=== PATIENT | male | born 1970 | race Caucasian/White ===

== ENCOUNTER → 2019-04-23 | Outpatient (CLI) | payer BC | LOC: RAD 13:39 | DX: M19.071 Primary osteoarthritis, right ankle and foot (principal); M79.89 Other specified soft tissue disorders ==

== ENCOUNTER → 2019-12-11 | Outpatient (CLI) | payer BC | LOC: LAB 10:30 | PROVIDERS: ATTEND Nurse Practitioner | DX: U07.1 COVID-19 (principal); R05 Cough; R50.9 Fever, unspecified; M79.10 Myalgia, unspecified site ==

== ENCOUNTER → 2020-06-30 | Outpatient (CLI) | payer OTHER ==
[~2020-06-30] VITALS: Ht 182.9 cm; Wt 86.2 kg
[~2020-06-30] MED LIST: COZAAR 25 MG TA25 MG PO; MELOXICAM15 MG PO
[2020-06-30 13:42] VITALS: BP 129/80
--- NOTE | 2020-06-30 14:15 | NUR ---
Pain Clinic Assessment: 1. History of Osteoarthritis: Not Applicable History of Rheumatoid Arthritis: Not Applicable 2. Height: 6 ft. 00 in. 182.9 cm. Weight: 190.0 lb. oz. 86.184 kg. Patient's BMI: 25.8 3. Vital Signs: BP: 129/80 Pulse: 73 Resp: 16 Temp: 02 Sat: 97 ECG Mon: 4. Pain Intensity: 8 5. Fall Risk: Dizziness: N Needs help standing or walking: N Fallen in the last 3 months: N Fall risk comments: 6. Patient on Blood Thinner: None 7. History of Hypertension: Y 8. Opioid Therapy greater than 6 weeks: N Opiate Contract Signed: 9. Risk Assessment Tool Provided: 10. Functional Assessment Tool: 11. Recreational Drug Use: Never Drug Type: Tobacco Use: Never Smoker Tobacco Type: Amount or Packs/day: How Many Years: Alcohol Use: Yes Frequency: Daily Quant: 2
--- NOTE | 2020-07-06 08:02 | HPC ---
[facility] [place] [address] PAIN MANAGEMENT CONSULTATION Name: DICKSON MORILLO Room #: REG Gary Lofton#: [id number] Admission: 06/30/20 Attend Phys: Guido Hoover DO Discharge: Date of : 74 Report #: [id number] THIS REPORT FOR: cc: Jose C Mark MD, Neal A. MD Johnson, James E. DO ~ DATE OF SERVICE: 06/30/2020 REFERRING PHYSICIAN: JAVIER Hays CHIEF COMPLAINT: Low back pain, left lower extremity pain with paresthesias. HISTORY OF PRESENT ILLNESS: As you know, the patient is a very pleasant 50-year-old male who reports 3-month history of low back pain, left lower extremity pain with paresthesias. The patient believes his pain began while on the golf course after teeing off on one of the longer part holes. He states he sought chiropractic manipulation, which prior gave good benefit, but was unhelpful. He states that his pain continued. It was exacerbated days later when he was on the golf course with his daughter and by the fourth hole, he had to discontinue the activity as his symptoms progressed with radiation down the left leg. He has been doing home directed physical therapy with minimal assistance for pain. He is even trial tmxt-udu-ejvrvso medications, rest, relaxation. He sought further evaluation through his primary care team seeing nurse practitioner, Cecy McGinness where he was sent for imaging studies. The findings show changes at the L4-L5 level and the patient was subsequently referred to our clinic. The patient reports today his pain is continuous. He describes the pain as shooting, aching, stabbing, numbness and tingling. Places current pain score 9/10, daily average at 9/10, worst pain has been is 9/10. The patient states pain is constant in nature, exacerbated with most activities, improves with nothing to date. He has been referred to our service to discuss treatment options for suspected lumbar radiculopathy. PAST MEDICAL HISTORY: 1. Hypertension. 2. Degenerative joint disease. 3. Osteoarthritis. PAST SURGICAL HISTORY: 1. Knee surgery. 2. Sinus surgery. SOCIAL HISTORY: The patient denies tobacco, IV or illicit drug use. Admits to 2 alcohol beverages per day. He is employed in sales. He is working, not receiving workmen's compensation nor is he trying to obtain discrete benefits. [address] [address] PAIN MANAGEMENT CONSULTATION Name: DICKSON MORILLO [id number] Admission: 06/30/20 Attend Phys: Guido Hoover DO Discharge: Date of : 74 Report #: [id number] He is not in litigation in regards to pain. He is unaccompanied at today's visit. REVIEW OF SYSTEMS: Positive for headaches, nocturia, low back pain, left lower extremity pain and paresthesias. All other review of systems negative per 12-point review of systems other than those listed in history of present illness. Pain impact score 58 of 70 indicating severe interference of daily activities secondary to pain. ALLERGIES: IODINE. CURRENT MEDICATIONS: Losartan 12 mg once a day, meloxicam 15 mg once a day. IMAGING: MRI of the lumbar spine obtained on 06/08/2020 shows L1-L2 unremarkable, L2-L3 unremarkable, L3-L4 unremarkable, L4-L5 shows left foraminal disk protrusion/extrusion with annular fissure causing left neural foraminal stenosis and compression of the left L4 nerve root within the neural foramen. There is a slight disk bulge, no central canal stenosis or right neural foraminal stenosis, mild facet arthropathy L5-S1, mild facet arthropathy. No central canal nor neural foraminal stenosis. PHYSICAL EXAMINATION: VITAL SIGNS: Blood pressure 129/80, pulse 73, respiratory rate 16 and unlabored. The patient is 97% on room air, height 6 feet tall, weight 190 pounds, BMI calculated 25.8. GENERAL: Well-developed, well-nourished, well-hydrated 50-year-old male appearing stated age. He is placing current pain score 8/10. HEENT: Normocephalic, atraumatic. Pupils equal, round and reactive. NEUROLOGIC: Speech is fluent. The patient is wearing a mask in compliance with COVID-19 regulations. RESPIRATORY: No wheezes, cough or rales. The patient is able to complete sentences without difficulty. EXTREMITIES: Show no clubbing, no cyanosis, no edema. MUSCULOSKELETAL: Lower extremity strength is symmetrical 5/5. Slight giveaway strength noted with hip flexion, knee extension on the left when compared to the right secondary to pain. Seated straight leg raising positive on the left. Supine straight leg raising positive on the left. Gait is mildly antalgic favoring left lower extremity over right. Muscle bulk and tone equal and symmetrical in lower extremities. Intact to light touch from L1 through S2 dermatomes. Deep tendon reflexes are symmetrical at patella and Achilles, 2+/4. Lumbar provocation testing is met with mild increase in pain, no radiation of symptoms. ASSESSMENT: [facility] [address] [place] [address] PAIN MANAGEMENT CONSULTATION Name: DICKSON MORILLO Room #: REG CL Rolly#: [id number] Admission: 06/30/20 Attend Phys: Guido Hoover DO Discharge: Date of : 74 Report #: [id number] 1. Symptomatic lumbar radiculopathy. 2. Displacement of lumbar intervertebral disk with radiculopathy. 3. Neural foraminal stenosis of the lumbar spine. 4. Facet arthropathy of the lumbar spine. PLAN: 1. Based on today's physical exam and history the patient has provided, the description the patient uses in regards to pain and the distribution of symptoms, the patient is experiencing pain upon likely source of his pain is lumbar radiculopathy. We have reviewed with the patient the findings of his recent MRI describing the differences between protrusions or extrusions and disk herniations. We then compared those findings and the MRI, specifically those findings at the L4-L5 level with his current symptoms. These both correlate very well, as the patient is experiencing an L4 dermatomal distribution of pain on the left side. We discussed with the patient the treatment options as follows: We discussed physical therapy, stretching exercises, core strengthening. The patient is participating in physician-directed physical therapy and stretching, but has noted only minimal improvement. We discussed possible further adjustments in that treatment. We discussed medication management adding neuropathic pain medications such as amitriptyline, nortriptyline, Cymbalta and Lyrica. We discussed epidural injections under fluoroscopic guidance for which the patient was referred to our clinic. We also discussed spinal cord stimulator therapy and surgical options. After reviewing the risks and benefits of all the proposed treatment options, the patient chose to begin with a lumbar epidural injection under fluoroscopic guidance. 2. The patient was advised that third alliance party payer restrictions require authorization for the patient to undergo the procedure. We were able to authorize this injection today and the patient was agreeable to undergo the procedure. 3. The patient has been advised risks and benefits of a lumbar epidural injection. These risks include but are not necessarily limited to bleeding, bruising, infection, worsening pain, no relief of pain, also risk of temporary or permanent muscle weakness, temporary or permanent nerve damage, possible paralysis and . The patient states understood and wished to proceed. 4. No medication changes made at today's visit. The patient will continue current medical therapy as prior prescribed. 5. We plan to see the patient back in followup visit in approximately 30 days. At that time, review the efficacy of today's epidural injection and determine if the next in the series of epidural injections might be necessary. 6. We wish to thank nurse practitioner, Cecy Mike for the opportunity to see this patient in consultation. We will keep you apprised of his response to treatment as we address lumbar radicular symptoms. Again, we wish to thank you for the opportunity to see this patient in consultation. [address] [address] PAIN MANAGEMENT CONSULTATION Name: DICKSON MORILLO Room #: REG CHRISTIAN Holder#: [id number] Admission: 06/30/20 Attend Phys: Guido Hoover DO Discharge: Date of : 74 Report #: [id number] PROCEDURE NOTE DESCRIPTION OF PROCEDURE: L5-S1 left paramedian epidural steroid injection under fluoroscopic guidance. After obtaining written consent, the patient was taken back to fluoroscopy suite, placed in prone position with pillow under abdomen to decrease lumbar lordosis. Skin overlying lumbosacral area then prepped and draped in aseptic fashion. The L5-S1 vertebral interspace identified by AP fluoroscopy. Skin and subcutaneous tissue overlying target site injection anesthetized with 3 mL of 1% lidocaine. A 20-gauge 3-1/2 inch Tuohy needle advanced under fluoroscopic guidance towards the epidural space using a left paramedian approach. Due to an ALLERGY TO IODINE no contrast agent was used in today's procedure. Needle positioning was confirmed using both AP and lateral fluoroscopy. After negative aspiration for heme or cerebrospinal fluid, 5 mL of solution containing 2 mL 40 mg per mL, 80 mg total triamcinolone along with 3 mL of lidocaine 1% injected slowly. Needle retracted half-way, flushed with 1 mL of 1% lidocaine and then removed. Sterile bandage placed over injection site. No new motor deficits present in lower extremity following procedure. The patient tolerated procedure well, carefully escorted to recovery room in stable condition. No apparent complications. After meeting discharge criteria, the patient discharged home. <ELECTRONICALLY SIGNED> By: Guido Hoover DO 07/06/20 [id number] [id number] Guido Hoover DO /nt
== END | disposition home or self-care (01) ==
LOC: PAIN 06-22 06:48
PROVIDERS: ATTEND Anesthesiology Pain Medicine
DX: M51.16 Intervertebral disc disorders with radiculopathy, lumbar region (principal); M48.061 Spinal stenosis, lumbar region without neurogenic claudication; M47.26 Other spondylosis with radiculopathy, lumbar region; I10 Essential (primary) hypertension; M19.90 Unspecified osteoarthritis, unspecified site; Z98.890 Other specified postprocedural states; Z79.899 Other long term (current) drug therapy; Z91.041 Radiographic dye allergy status

== ENCOUNTER → 2020-11-23 | Outpatient (CLI) | payer OTHER ==
[~2020-11-23] VITALS: Ht 185.4 cm; Wt 84.1 kg
[2020-11-23 08:19] VITALS: BP 127/78
--- NOTE | 2020-11-23 08:22 | NUR ---
Pain Clinic Assessment: 1. History of Osteoarthritis: Not Applicable History of Rheumatoid Arthritis: Not Applicable 2. Height: 6 ft. 1 in. 185.4 cm. Weight: 185.4 lb. oz. 84.097 kg. Patient's BMI: 24.5 3. Vital Signs: BP: 127/78 Pulse: 94 Resp: 16 Temp: 02 Sat: 99 ECG Mon: 4. Pain Intensity: 8 5. Fall Risk: Dizziness: N Needs help standing or walking: N Fallen in the last 3 months: N Fall risk comments: 6. Patient on Blood Thinner: None 7. History of Hypertension: Y 8. Opioid Therapy greater than 6 weeks: N Opiate Contract Signed: 9. Risk Assessment Tool Provided: 7 MODERATE RISK 10. Functional Assessment Tool: 58/70 11. Recreational Drug Use: Never Drug Type: Tobacco Use: Never Smoker Tobacco Type: Amount or Packs/day: How Many Years: Alcohol Use: Yes Frequency: Daily Quant: 2
--- NOTE | 2020-11-30 09:33 | HPC ---
[facility] [place] [address] PAIN MANAGEMENT CONSULTATION Name: DICKSON MORILLO Room #: REG CHRISTIAN Adia.#: [id number] Admission: 11/23/20 Attend Phys: Guido Hoover DO Discharge: Date of : 74 Report #: [id number] THIS REPORT FOR: cc: Jose C Mark MD,Guido Doran MD, DO ~ DOC #: [id number] cc: MD Guido Medrano DO DATE OF SERVICE: 11/23/2020 REFERRING PHYSICIAN: Jose C Mark MD CHIEF COMPLAINT: Low back pain, left lower extremity pain with paresthesias. HISTORY OF PRESENT ILLNESS: As you know, the patient is a very pleasant 50-year-old male returning in followup visit with recurrence of lumbar radicular symptoms involving left lower extremity. The patient reports with previous epidural injection, he received near 100% improvement in overall pain lasting for five and a half months. The patient states that he was doing very well until just recently when he was taking his dog for a walk. Apparently, the dog's weight is up to 100 pounds. Dog was pulling on the leash unexpectedly and this caused instantaneous recurrence of his low back and left lower extremity symptoms. Other than this incident, he had had no new injury or trauma. He returns today in followup visit having tried conservative ocen-znl-kxxfzja medication, rest, and relaxation to address the recurrent lumbar radiculopathy in hopes of undergoing an epidural injection under fluoroscopic guidance. The patient was made today's appointment to undergo the next in the series of epidural injections. He is placing his current pain score at 8/10. ALLERGIES: IODINE. CURRENT MEDICATIONS: Meloxicam 15 mg once a day, losartan 25 mg once a day. SOCIAL HISTORY: The patient denies tobacco use. Denies IV or illicit drug use. Admits to approximately 2 alcohol beverages per day. He is employed in sales, working, unaccompanied today. IMAGING: No new imaging available. PHYSICAL EXAMINATION: VITAL SIGNS: Blood pressure 127/78, pulse 94, respiratory rate 16 and unlabored. The patient is 99% on room air, height 6 feet 1 inch tall, weight 185.4 pounds, BMI calculated 24.5. GENERAL: Well-developed, well-nourished, well-hydrated, 50-year-old male, appearing stated age, pain is rated today at 8/10. [place] [address] PAIN MANAGEMENT CONSULTATION Name: DICKSON MORILLO Room #: REG [facility]#: [id number] Admission: 11/23/20 Attend Phys: Guido Hoover DO Discharge: Date of : 74 Report #: [id number] HEENT: Normocephalic, atraumatic. Pupils equal, round and responsive. He is wearing a mask in compliance with COVID-19 regulations. EXTREMITIES: Show no clubbing, no cyanosis. No appreciable edema. MUSCULOSKELETAL: Seated straight leg raising is positive on the left. Supine straight leg raising is positive on the left. Dulce Maria's test is negative. Gait is mildly antalgic favoring left lower extremity over right. Muscle bulk and tone remain symmetrical in the lower extremities. ASSESSMENT: 1. Symptomatic lumbar radiculopathy. 2. Displacement of lumbar intervertebral disk with radiculopathy. 3. Neural foraminal stenosis of lumbar spine. 4. Facet arthropathy, lumbar spine. 5. Lumbosacral spondylosis with radiculopathy. PLAN: 1. The patient returns today in followup visit having noted 100% improvement in overall pain with the epidural injection provided at the last visit. He is very pleased with response to this injection, returning today to undergo the next in the series. He has been advised risks and benefits of the procedure, states understood and wished to proceed. 2. No medication changes made at today's visit. The patient will continue current medical therapy as prior prescribed. 3. We will see the patient back in followup visit on an as needed basis for the next in the series of epidural injections. We are hopeful the patient will once again see good and prolonged benefit with today's epidural injection. PROCEDURE NOTE DESCRIPTION OF PROCEDURE: L5-S1 left paramedian epidural steroid injection under fluoroscopic guidance. After obtaining written consent, the patient was taken back to fluoroscopy suite, placed in prone position with pillow under abdomen to decrease lumbar lordosis. Skin overlying lumbosacral area prepped and draped in aseptic fashion. L5-S1 vertebral interspace was identified by AP fluoroscopy. Skin and subcutaneous tissue overlying target site injection anesthetized with 3 mL 1% lidocaine. A 20 gauge 3-1/2 inch Tuohy needle advanced under fluoroscopic guidance towards the epidural space using a left paramedian approach. Due to a contrast allergy, no contrast material was used in today's procedure. Needle positioning was confirmed using both AP and lateral fluoroscopy. After negative aspiration for heme or cerebrospinal fluid, 5 mL of solution containing 2 mL 40 mg per mL, 80 mg total triamcinolone along with 3 mL of lidocaine 1% injected slowly. Needle retracted skilled nursing flushed with 1 mL of 1% lidocaine and then removed. Sterile [address] [address] PAIN MANAGEMENT CONSULTATION Name: DICKSON MORILLO Room #: [facility]#: [id number] Admission: 11/23/20 Attend Phys: Guido Hoover DO Discharge: Date of : 74 Report #: [id number] bandage placed over injection site. No new motor deficits present in lower extremity following procedure. The patient tolerated the procedure well, carefully escorted to recovery room in stable condition. No apparent complications. After meeting discharge criteria, the patient discharged home. Guido Hoover DO JEJ/TRELL <ELECTRONICALLY SIGNED> By: Guido Hoover DO 11/30/20 0933 [id number] Guido Hoover DO /nt
== END | disposition home or self-care (01) ==
LOC: PAIN 08-03 07:03
PROVIDERS: ATTEND Anesthesiology Pain Medicine
DX: M51.16 Intervertebral disc disorders with radiculopathy, lumbar region (principal); M47.27 Other spondylosis with radiculopathy, lumbosacral region; M47.26 Other spondylosis with radiculopathy, lumbar region; M48.061 Spinal stenosis, lumbar region without neurogenic claudication; G89.29 Other chronic pain; Z98.890 Other specified postprocedural states; Z79.899 Other long term (current) drug therapy; Z91.041 Radiographic dye allergy status

== ENCOUNTER → 2021-03-16 | Outpatient (CLI) | payer OTHER ==
[~2021-03-16] VITALS: Ht 185.4 cm; Wt 85.4 kg
--- NOTE | ~2021-03-16 | HPC ---
[facility] [address] [place] [address] PAIN MANAGEMENT CONSULTATION Name: DICKSON MORILLO Room #: REG [facility]#: [id number] Admission: 03/16/21 Attend Phys: Guido Hoover DO Discharge: Date of : 74 Report #: [id number] THIS REPORT FOR: cc: Jose C Mark MD, Neal A. MD Johnson, James E. DO ~ cc: JAVIER Hays DATE OF SERVICE: 03/16/2021 REFERRING PHYSICIAN: Nurse practitioner, Cecy Mike. CHIEF COMPLAINT: Low back pain, left lower extremity pain with paresthesias. HISTORY OF PRESENT ILLNESS: As you know, the patient is a 51-year-old male returning to our clinic per the request of his nurse practitioner, Cecy Mike, to undergo next in the series of lumbar epidural injections under fluoroscopic guidance. He returns today stating excellent benefit with the epidural injection provided in November of this year. He states pain improvement of greater than 100% with slow and progressive return of symptoms without inciting injury or trauma. The patient states pain is exacerbated with golfing, arising in the morning, lifting, standing and certain exercises; improves with medications, heat and cold compresses and topical agents and the previous epidural injection. He returns today for the next in the series of epidural injections in hopes of improving pain. The patient denies injury, trauma or any changes in medication management that would preclude the patient from undergoing an epidural injection today. ALLERGIES: IODINE. CURRENT MEDICATIONS: Meloxicam 15 mg once a day, losartan mg once a day. SOCIAL HISTORY: The patient denies tobacco use. Denies IV or illicit drug use. Admits approximately 1-2 alcohol beverages per day. He is employed in sales, working, not receiving workmen's compensation, unaccompanied today. IMAGING: No new imaging available. PHYSICAL EXAMINATION: VITAL SIGNS: Blood pressure 125/89, pulse 66, respiratory rate 14 and unlabored. The patient 97% on room air, height 6 feet 1 inch tall, weight 188.2 pounds, BMI calculated 24.8. GENERAL: Well-developed, well-nourished, well-hydrated 51-year-old male appearing stated age, pain is rated today around 9/10. HEENT: Normocephalic, atraumatic. Pupils equal, round and responsive to light. Speech is fluent. He is wearing a mask in compliance with COVID-[address] [address] PAIN MANAGEMENT CONSULTATION Name: DICKSON MORILLO Room #: REG [facility]#: [id number] Admission: 03/16/21 Attend Phys: Guido Hoover DO Discharge: Date of : 74 Report #: [id number] EXTREMITIES: Show no clubbing, no cyanosis. No appreciable edema. MUSCULOSKELETAL: Lower extremity strength is symmetrical 5/5. Muscle bulk and tone is symmetrical. Seated straight leg raising is negative. Supine straight leg raising positive on the right. Dulce Maria's test is negative. Gait appears normal. Stance normal. ASSESSMENT: 1. Symptomatic lumbar radiculopathy. 2. Displacement of lumbar intervertebral disk with radiculopathy. 3. Neural foraminal stenosis of lumbar spine. 4. Facet arthropathy of lumbar spine. 5. Lumbosacral spondylosis with radiculopathy. PLAN: 1. The patient returns today in followup visit having near 100% improvement in overall pain with the epidural injection provided in November. Unfortunately, his symptoms have begun to return in a slow and progressive fashion. There has been no inciting injury or trauma. He returns today requesting the next in the series of lumbar epidural injections to build on success of previous intervention. The patient has been advised the risks and benefits of the procedure, states understood and wished to proceed. 2. No medication changes made at today's visit. The patient will continue current medical therapy as prior prescribed. 3. We will see the patient back in followup visit for the next in the series of lumbar epidural injections. Based on the patient's current injection record, he is available to begin injections starting as early as next month, which will be the second 6-month series of injections. PROCEDURE NOTE: DESCRIPTION OF PROCEDURE: L5-S1 left paramedian epidural steroid injection under fluoroscopic guidance. After obtaining written consent, the patient was taken back to fluoroscopy suite, placed in prone position with pillow under abdomen to decrease lumbar lordosis. Skin overlying lumbosacral area prepped and draped in aseptic fashion. The L5-S1 vertebral interspace identified by AP fluoroscopy. Skin and subcutaneous tissue overlying target site injection anesthetized with 3 mL 1% lidocaine. A 20 gauge 3-1/2 inch Tuohy needle advanced under fluoroscopic guidance towards the epidural space using left paramedian approach. Epidural space identified using loss of resistance to air technique. Due to a contrast allergy, no contrast agent was used in today's procedure. The needle positioning was confirmed using both AP and lateral fluoroscopy within the epidural space. After negative aspiration for heme or cerebrospinal fluid, 5 mL solution [address] [address] PAIN MANAGEMENT CONSULTATION Name: DICKSON MORILLO Room #: REG [facility]#: [id number] Admission: 03/16/21 Attend Phys: Guido Hoover DO Discharge: Date of : 74 Report #: [id number] containing 2 mL 40 mg per mL 80 mg total triamcinolone along with 3 mL lidocaine of 1% injected slowly. Needle retracted retirement, flushed with 1 mL of 1% lidocaine, then removed. Sterile bandage placed over injection site. No new motor deficits present in lower extremity following procedure. The patient tolerated the procedure well, carefully escorted to recovery room in stable condition. No apparent complications. After meeting discharge criteria, the patient discharged home. By: [id number] Guido Hoover DO /nt
[2021-03-16 09:44] VITALS: BP 125/89
--- NOTE | 2021-03-16 09:45 | NUR ---
Pain Clinic Assessment: 1. History of Osteoarthritis: Not Applicable History of Rheumatoid Arthritis: Not Applicable 2. Height: 6 ft. 1 in. 185.4 cm. Weight: 188.2 lb. oz. 85.367 kg. Patient's BMI: 24.8 3. Vital Signs: BP: 125/89 Pulse: 66 Resp: 14 Temp: 02 Sat: 97 ECG Mon: 4. Pain Intensity: 9 W/ACTIVITY 5. Fall Risk: Dizziness: N Needs help standing or walking: N Fallen in the last 3 months: N Fall risk comments: 6. Patient on Blood Thinner: None 7. History of Hypertension: Y 8. Opioid Therapy greater than 6 weeks: N Opiate Contract Signed: 9. Risk Assessment Tool Provided: 7 MODERATE RISK 10. Functional Assessment Tool: 58/70 11. Recreational Drug Use: Never Drug Type: Tobacco Use: Never Smoker Tobacco Type: Amount or Packs/day: How Many Years: Alcohol Use: Yes Frequency: Daily Quant: 1-3
== END | disposition home or self-care (01) ==
LOC: PAIN 07:03
PROVIDERS: ATTEND Anesthesiology Pain Medicine
DX: M51.16 Intervertebral disc disorders with radiculopathy, lumbar region (principal); G89.29 Other chronic pain; M47.26 Other spondylosis with radiculopathy, lumbar region; M47.27 Other spondylosis with radiculopathy, lumbosacral region; M48.061 Spinal stenosis, lumbar region without neurogenic claudication; Z98.890 Other specified postprocedural states; Z79.899 Other long term (current) drug therapy; Z91.041 Radiographic dye allergy status

== ENCOUNTER → 2021-05-17 | Outpatient (CLI) | payer OTHER ==
[~2021-05-17] VITALS: Ht 185.4 cm; Wt 86.6 kg
[~2021-05-17] MED LIST changes: +TRAMADOL 50 MG50 MG PO
[2021-05-17 09:19] VITALS: BP 142/102
--- NOTE | 2021-05-17 09:23 | NUR ---
Pain Clinic Assessment: 1. History of Osteoarthritis: Not Applicable History of Rheumatoid Arthritis: Not Applicable 2. Height: 6 ft. 1 in. 185.4 cm. Weight: 191.0 lb. oz. 86.637 kg. Patient's BMI: 25.2 3. Vital Signs: BP: 142/102 Pulse: 68 Resp: 16 Temp: 02 Sat: 96 ECG Mon: 4. Pain Intensity: 9 5. Fall Risk: Dizziness: N Needs help standing or walking: N Fallen in the last 3 months: N Fall risk comments: 6. Patient on Blood Thinner: None 7. History of Hypertension: Y 8. Opioid Therapy greater than 6 weeks: N Opiate Contract Signed: 9. Risk Assessment Tool Provided: 7 MODERATE RISK 10. Functional Assessment Tool: 58/70 11. Recreational Drug Use: Never Drug Type: Tobacco Use: Never Smoker Tobacco Type: Amount or Packs/day: How Many Years: Alcohol Use: Yes Frequency: Daily Quant: 2 WINE
--- NOTE | 2021-05-17 14:34 | HPC ---
[facility] [place] [address] PAIN MANAGEMENT CONSULTATION Name: DICKSON MORILLO Room [id number] Admission: 05/17/21 Attend Phys: Guido Hoover DO Discharge: Date of : 74 Report #: [id number] THIS REPORT FOR: cc: Jose C Mark MD, Neal A. MD Johnson, James E. DO ~ cc: JAVIER Hays DATE OF SERVICE: 05/17/2021 CHIEF COMPLAINT: Low back pain, left lower extremity pain with paresthesias. HISTORY OF PRESENT ILLNESS: As you know, the patient is a very pleasant 51-year-old male, who returns to our clinic today with recurrence of lumbar radiculopathy involving low back and left lower extremity. He is now placing pain score 7/10. He describes the pain as more of a shooting, aching, stabbing and radiating in his pattern of distribution. Pain is exacerbated with activity, golfing tends to be worse in the morning hours, lifting and standing, improves with medications, heat and cold compresses as topical, [id number] medications and previous epidural injection. The patient received an epidural injection under fluoroscopic guidance at his last visit, which gave 90% improvement in overall pain until just recently where he has had a slow and progressive return of symptoms. There has been no inciting injury or trauma. He returns today requesting the next in the series of epidural injections under fluoroscopic guidance in hopes of improving lumbar radicular symptoms that have reoccurred. ALLERGIES: No known drug allergies. CURRENT MEDICATIONS: Tramadol 50 mg 1 tab every 8 hours p.r.n. pain, meloxicam 15 mg p.o. q.a.m., losartan 25 mg per day. SOCIAL HISTORY: The patient denies tobacco use. Denies IV or illicit drug use. Admits to approximately 1-2 alcohol beverages per day. He is employed in sales working, not receiving workmen's compensation, unaccompanied today. IMAGING: No new imaging available. PHYSICAL EXAMINATION: VITAL SIGNS: Blood pressure 149/102, pulse is 68, respiratory rate 16 and unlabored. The patient is 96% on room air, height 6 feet 1 inch tall, weight 191 pounds, BMI calculated 25.2. GENERAL: A well-developed, well-nourished, well-hydrated 51-year-old male appearing stated age, pain is rated today 9/10. HEENT: Normocephalic, atraumatic. Pupils equal, round and responsive. He is wearing a mask in compliance with COVID-19 regulations and hospital policies. EXTREMITIES: Show no clubbing, no cyanosis, [place] [address] PAIN MANAGEMENT CONSULTATION Name: DICKSON MORILLO Room #: REG [facility]#: [id number] Admission: 05/17/21 Attend Phys: Guido Hoover DO Discharge: Date of : 74 Report #: [id number] MUSCULOSKELETAL: Lower extremity strength equal and symmetrical 5/5. He display some antalgic gait, favoring left lower extremity over right. Seated straight leg raising is mildly positive, left. Supine straight leg raising positive on the left. Dulce Maria's test is negative. Babinski is negative. ASSESSMENT: 1. Symptomatic lumbar radiculopathy. 2. Displacement of lumbar intervertebral disk with radiculopathy. 3. Neural foraminal stenosis of lumbar spine. 4. Facet arthropathy of lumbar spine. 5. Lumbosacral spondylosis with radiculopathy. 6. Chronic intractable pain. PLAN: 1. The patient returns today in followup visit requesting to undergo lumbar epidural injection under fluoroscopic guidance. The patient has done very well with previous epidural injection noticing 90% improvement in overall pain. This lasted until just recently where he has had a slow and progressive return of symptoms. We have begun the authorization process and received authorization for the patient to undergo the procedure today. He has been advised risks and benefits of the procedure, states understood and wished to proceed. 2. No medication changes made at today's visit. The patient will continue current medical therapy as prior prescribed. 3. Plan to see the patient back in followup visit on an as needed basis for the next in the series of lumbar epidural injections. We are hopeful that the patient once again see good and prolonged benefit with the injection provided today. PROCEDURE NOTE DESCRIPTION OF PROCEDURE: L5-S1 left paramedian epidural steroid injection under fluoroscopic guidance. After obtaining written consent, the patient was taken back to fluoroscopy suite, placed in prone position pillow under abdomen to decrease lumbar lordosis. Skin overlying lumbosacral area prepped and draped in aseptic fashion. The L5-S1 vertebral interspace identified by AP fluoroscopy. Skin and subcutaneous tissue overlying target site injection of 3 mL 1% lidocaine. A 20-gauge 3-1/2 inch Tuohy needle was advanced under fluoroscopic guidance towards the epidural space using left paramedian approach. Epidural space identified using loss of resistance to air technique. Due to a contrast allergy, no contrast agent used in today's procedure. Needle positioning was confirmed using both AP and lateral fluoroscopy. After negative aspiration for heme or cerebrospinal fluid, 5 mL solution containing 2 mL 40 mg per mL 80 mg total triamcinolone along with 3 mL of lidocaine, 1% injected slowly. Needle [facility] [address] [place] [address] PAIN MANAGEMENT CONSULTATION Name: DICKSON MORILLO [id number] Admission: 05/17/21 Attend Phys: Guido Hoover DO Discharge: Date of : 74 Report #: [id number] retracted fci, flushed with 1 mL of 1% lidocaine, then removed. Sterile bandage placed over injection site. No new motor deficits present in the lower extremities following procedure. The patient tolerated the procedure well, carefully escorted to recovery room in stable condition. No apparent complications. After meeting discharge criteria, the patient discharged home. <ELECTRONICALLY SIGNED> By: Guido Hoover DO 05/17/21 [id number] Guido Hoover DO /nt
== END | disposition home or self-care (01) ==
LOC: PAIN 09:06
PROVIDERS: ATTEND Anesthesiology Pain Medicine
DX: M51.16 Intervertebral disc disorders with radiculopathy, lumbar region (principal); M47.27 Other spondylosis with radiculopathy, lumbosacral region; M47.26 Other spondylosis with radiculopathy, lumbar region; M48.061 Spinal stenosis, lumbar region without neurogenic claudication; G89.29 Other chronic pain; Z98.890 Other specified postprocedural states; Z79.899 Other long term (current) drug therapy; Z91.041 Radiographic dye allergy status